=== PATIENT | male | born 1965 | race Caucasian/White ===

== ENCOUNTER 2023-04-16 07:22 | Outpatient (CLI) | payer OTHER, SELFPAY ==
--- NOTE | 2023-04-16 07:33 | FL_ITS ---
WS: [id number] Barium swallow and esophagram, 04/16/2023 Clinical Data: DYSPHAGIA, PHARYNGOESOPHAGEAL PHASE Comparison: None. Fluoroscopy time: 0min [id number] # of spot films: 29 Findings: The patient swallowed the thick and thin barium, and it flowed through the hypopharynx without hesita tion. No stricture, mass, polyp or erosion was seen. 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 The barium entered the esophagus and there tertiary contractions.. There is a moderate hiatal hernia with moderate gastroesophageal reflux. No erosion, polyp, fistula, ulcer or mass was seen. Impression : 1. 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 2. Tertiary contractions of the esophagus with poor motility. 3. Moderate hiatal hernia with moderate gastroesophageal reflux.
--- NOTE | 2023-04-16 07:33 | CT_ITS ---
WS: [id number] CT NECK WITH CONTRAST HISTORY: POLYP OF NASAL CAVITY/ACUTE RECURRENT SIALOADENITIS/DYPHAGIA TECHNIQUE: Contiguous 2 mm axial images are performed through the neck with intravenous contrast. Sag ittal and coronal reformats are also submitted. All CT scans at [facility] use at least one o f these dose optimization techniques: automated exposure control; mA and/or kV adjustment per patient size (includes targeted exams where dose is matched to clinical indication); or iterative reconstruc tion. CONTRAST: CONTRAST: Omnipaque 350; 100 mL IV. DLP: 282.11 mGy.cm COMPARISON: None available. Nasopharynx, oropharynx, hypopharynx and larynx are unremarkable. No soft tissue masses or abnormal e nhancement. Torus tubarius and fossa of Rosenmuller and parapharyngeal fat are normal. Small bilateral benign-appearing cervical chain lymph nodes. No adenopathy. Thyroid gland and salivary glands are normally enhancing with no masses. Cervical spine degenerative disc disease and osteophytosis at C5-6 and C6-7. Visualized portions of the skull base demonstrate no abnormalities. Orbits and globes are within norm al limits. No soft tissue masses. There is extensive soft tissue opacification within the visualized ethmoid and maxillary and sphenoid sinuses. Lung apices are clear. IMPRESSION: 1. No neck mass or adenopathy. 2. Normal tongue base. 3. Extensive dense opacifications involving the maxillary, ethmoid and sphenoid sinuses.
[2023-04-16] MEDS: iohexol 350 mg/mL 500 mL Btl (per mL) IV (07:56)
== END 2023-04-16 07:23 | disposition home or self-care (01) ==
LOC: RAD 07:22
PROVIDERS: PCP Family Medicine; Visit Provider Otolaryngology
DX: J33.0 Polyp of nasal cavity (principal); K11.22 Acute recurrent sialoadenitis; R13.10 Dysphagia, unspecified
CPT/HCPCS: 70491; 74220; Q9967